=== PATIENT | female | born 2000 | race Caucasian/White ===

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

== ENCOUNTER 2023-07-07 06:10 | Emergency (ER) | payer BC, MEDICAID, SELFPAY ==
[2023-07-07 06:19] VITALS: BP 110/84; PULSE 101; RESP 19; TEMP 36.8; O2SAT 95; BMI 36.3
[2023-07-07] MEDS: METOCLOPRAMIDE HCL 10MG/2ML VIAL 10 MG IVP (06:35)
[2023-07-07] MEDS: LACTATED RINGERS 1000ML 1,000 ML 999 ML IV (06:35)
--- NOTE | 2023-07-07 06:40 | HMH.EDGENADL ---
Discharge Plan Disposition Patient Disposition: Still a Patient Prescriptions Prescriptions: New ondansetron 4 mg tablet,disintegrating 4 mg PO Q6H PRN (Reason: nausea and vomiting) 5 Days Qty: 20 0RF metoclopramide HCl 10 mg tablet 10 mg PO Q6H PRN (Reason: nausea and vomiting) 7 Days Qty: 28 0RF No Action PNV cmb#95-ferrous fumarate-FA [] 28 mg iron- 800 mcg Tablet 1 tab PO DAILY Referrals Follow up/Referrals: Provider,Referral, MD [Primary Care Provider] - See instructions Activity Restrictions/Add. Instructions Additional Instructions/Restrictions: Your symptoms are consistent with a viral gastroenteritis most likely secondary to norovirus given the known exposure. You have been given Reglan and Zofran to be used at home as needed for nausea and vomiting. Please follow-up with your [facility] doctor as previously instructed. You have a living single intrauterine consistent with dates return emerged part with any significant worsening of your symptoms. Clinical Impressions Clinical Impression: Nausea vomiting and diarrhea, First trimester Instructions Patient Instructions: DI for Diarrhea and Traveler's Diarrhea -- Adult, DI for Diarrhea and Traveler's Diarrhea -- Child, DI for Nausea -- Adult, DI for Nausea -- Child Discharge ED Provider: Keith Bryan General Adult HPI <Keith Bryan MD - Last Filed: 07/07/23 06:45> General Chief complaint: Nausea/Vomiting/Diarrhea Stated complaint: vomiting Time Seen by Provider: 07/07/23 06:15 Mode of Arrival: Family Vehicle Source of Information: Patient Limitations: No Limitations Description of Symptoms (Recalled from ER Triage Doc. by RN): 22 yo female presents with cc of acute onset n/v/d since 040. A1. Currently is 11 weeks, [address] Wall in [place]. States her and her both have these symptoms and their daughter recently got over norovirus . Patient is afebrile. States her belly is cramping intermittently. Unable to tolerate any PO. PMH: n/a; PSH: n/a; takes a daily vitamin. History of Present Illness HPI narrative: 22-year-old female, currently 11 weeks , history of miscarriage in February, presents with nausea vomiting diarrhea. Reports that been ongoing since yesterday. She reports she has vomited at least 7 times in the last 24 hours. She reports she is unable to keep anything down including liquids. She reports frequent diarrhea as well. Her daughter recently got over norovirus and patient has presumably picked it up. She denies any significant abdominal pain. She denies fever. Related Data Home Medications Medication Instructions Recorded Confirmed vit no.95-ferrous 1 tab PO DAILY 07/07/23 07/07/23 fumarate 28 mg-folic acid 800 mcg tablet () Previous Rx's Medication Instructions Recorded metoclopramide HCl 10 mg tablet 10 mg PO Q6H PRN nausea and 07/07/23 vomiting 7 days #28 tabs ondansetron 4 mg disintegrating 4 mg PO Q6H PRN nausea and 07/07/23 tablet vomiting 5 days #20 tabs Allergies Allergy/AdvReac Type Severity Reaction Status Date / Time No Known Drug Allergies Allergy Unknown Verified 12/07/21 09:15 [NO KNOWN DRUG ALLERGIES] [facility] <Keith Bryan MD - Last Filed: 07/07/23 06:45> [facility] Disclaimer: The information contained in this section may have been updated after the patient was seen, as this information can be updated by other users. Social History Smoking Status: Unknown if ever smoked second hand exposure: No alcohol intake: never substance use type: denies use current occupational status: employed Travel in the last 8 weeks: None household members: family housing: house caffeine: No <Keith Bryan MD - Last Filed: 07/07/23 06:45> ROS Obtained: Yes All systems reviewed & no additional complaints except as documented Physical Exam <Keith Bryan MD - Last Filed: 07/07/23 06:45> General General appearance: alert and in no apparent distress Head Head exam: atraumatic and normocephalic Eye Eye exam: Present normal appearance, PERRL and EOMI ENT ENT exam: Present normal oropharynx and normal external ear exam Neck Neck exam: Present normal inspection and full ROM Chest Chest inspection: Present normal inspection and symmetric chest wall rise; Absent tenderness Respiratory Respiratory exam: Present normal lung sounds bilaterally; Absent respiratory distress Cardiovascular Cardiovascular exam: Present regular rate and normal rhythm Abdominal Exam Abdominal exam: Present soft; Absent distention, tenderness or guarding Extremities Exam Extremities exam: Present normal inspection; Absent edema or joint swelling Back Exam Back exam: Present normal inspection; Absent tenderness Neurological Exam Neurological exam: Present alert and oriented X3; Absent motor sensory deficit Psychiatric Psychiatric exam: Present normal affect and normal mood Skin Skin exam: Present warm, dry and normal color Lymphatic Lymphatic Findings: no adenopathy Medical Decision Making <Keith Bryan MD - Last Filed: 07/07/23 06:45> Medical Records Medical records reviewed: Yes I reviewed the patient's medical records. Caesar Inquiry Pt receiving controlled substance: No Caesar was queried for this patient: No Vital Signs: 07/07/23 06:19 07/07/23 07:45 Temperature 98.2 F Temperature Source Oral Pulse Rate 80 Pulse Rate [Right Brachial] 101 H Respiratory Rate 19 Blood Pressure 119/69 Blood Pressure [Right Arm] 110/84 Blood Pressure Mean [Right Arm] 92 Blood Pressure Source [Right Arm] Automatic Cuff Blood Pressure Position [Right Arm] Sitting 02 Sat by Pulse Oximetry 95 98 Oxygen Delivery Method Room Air Room Air Lab Data Lab results reviewed: Yes I reviewed the patient's lab results. Lab Results 07/07/23 06:40: WBC 9.1, RBC 4.74, Hgb 13.0, Hct 40.7, MCV 86.0, MCH 27.6, MCHC 32.0, RDW 14.8, Plt Count 238, MPV 8.2, Neut % (Auto) 88.3 H, Lymph % (Auto) 6.4 L, [place] % (Auto) 3.9, Eos % (Auto) 1.1, Baso % (Auto) 0.4, Neut # (Auto) 8.0 H, Lymph # (Auto) 0.6 L, [place] # (Auto) 0.4, Eos # (Auto) 0.1, Baso # (Auto) 0.0, Sodium 136, Potassium 3.9, Chloride 104, Carbon Dioxide 22, Anion Gap 13.9, BUN 9, Creatinine 0.40 L, Estimated Creat Clear 321 H, Estimated GFR 198, Est GFR ( Amer) 239, Glucose 108 H, Calcium 9.1, Total Bilirubin 0.5, AST 31, ALT 30, Alkaline Phosphatase 50, Total Protein 7.2, Albumin 4.1, Globulin 3.1, Albumin/Globulin Ratio 1.3 07/07/23 06:40 07/07/23 06:40 Orders (Tests/Meds): ED MEDICATIONS Discontinued Medications Generic Name Dose Route Start Last Admin Trade Name Michael PRN Reason Stop Dose Admin Lactated Ringer's 1,000 mls @ 999 mls/hr 07/07/23 06:26 07/07/23 06:35 Lactated Ringer's 1000 Ml Bag IV 07/07/23 07:26 999 mls/hr .Q1H1M ONE Administration Lactated Ringer's 1,000 mls @ 999 mls/hr 07/07/23 06:30 Lactated Ringer's 1000 Ml Bag IV 07/07/23 07:30 .Q1H1M NYLA Metoclopramide HCl 10 mg 07/07/23 06:30 07/07/23 06:35 Metoclopramide Hcl 10mg/2ml Vial IVP 07/07/23 06:31 10 mg ONCE ONE Administration ORDERS Category Date Time Status POCUS Point of Care (ER Only) Stat Exams 07/07/23 07:48 Ordered Complete Blood Count Auto Diff Stat Lab 07/07/23 06:40 Results Comprehensive Metabolic Panel Stat Lab 07/07/23 06:40 Results HCG,Quantitative Stat Lab 07/07/23 06:40 Results Magnesium Stat Lab 07/07/23 06:40 Received Medical Decision Narrative: 22-year-old female, 11 weeks , presents with intractable nausea vomiting diarrhea, recent exposure to norovirus.. History was obtained interactive discussion with patient. On arrival, patient is [afebrile, hemodynamically stable, satting appropriately, alert, oriented x4, GCS 15], moving all extremities spontaneously. Full physical exam performed and significant for no abdominal tenderness on exam. Differential includes but is not limited to gastroenteritis, dehydration, hyperemesis, electrolyte derangement. Patient was given 2 L IV fluid bolus, IV Reglan for symptomatic management and correction of underlying abnormalities. Workup initiated including CBC CMP mag beta-hCG. At this time care handed off operating physician. <Jordin Hunt MD - Last Filed: 07/07/23 08:01> Vital Signs: 07/07/23 06:19 07/07/23 07:45 Temperature 98.2 F Temperature Source Oral Pulse Rate 80 Pulse Rate [Right Brachial] 101 H Respiratory Rate 19 Blood Pressure 119/69 Blood Pressure [Right Arm] 110/84 Blood Pressure Mean [Right Arm] 92 Blood Pressure Source [Right Arm] Automatic Cuff Blood Pressure Position [Right Arm] Sitting 02 Sat by Pulse Oximetry 95 98 Oxygen Delivery Method Room Air Room Air Lab Data Lab results reviewed: Yes I reviewed the patient's lab results. Lab Results 07/07/23 06:40: WBC 9.1, RBC 4.74, Hgb 13.0, Hct 40.7, MCV 86.0, MCH 27.6, MCHC 32.0, RDW 14.8, Plt Count 238, MPV 8.2, Neut % (Auto) 88.3 H, Lymph % (Auto) 6.4 L, [place] % (Auto) 3.9, Eos % (Auto) 1.1, Baso % (Auto) 0.4, Neut # (Auto) 8.0 H, Lymph # (Auto) 0.6 L, [place] # (Auto) 0.4, Eos # (Auto) 0.1, Baso # (Auto) 0.0, Sodium 136, Potassium 3.9, Chloride 104, Carbon Dioxide 22, Anion Gap 13.9, BUN 9, Creatinine 0.40 L, Estimated Creat Clear 321 H, Estimated GFR 198, Est GFR ( Amer) 239, Glucose 108 H, Calcium 9.1, Total Bilirubin 0.5, AST 31, ALT 30, Alkaline Phosphatase 50, Total Protein 7.2, Albumin 4.1, Globulin 3.1, Albumin/Globulin Ratio 1.3 Orders (Tests/Meds): ED MEDICATIONS Discontinued Medications Generic Name Dose Route Start Last Admin Trade Name Freq PRN Reason Stop Dose Admin Lactated Ringer's 1,000 mls @ 999 mls/hr 07/07/23 06:26 07/07/23 06:35 Lactated Ringer's 1000 Ml Bag IV 07/07/23 07:26 999 mls/hr .Q1H1M ONE Administration Lactated Ringer's 1,000 mls @ 999 mls/hr 07/07/23 06:30 Lactated Ringer's 1000 Ml Bag IV 07/07/23 07:30 .Q1H1M NYLA Metoclopramide HCl 10 mg 07/07/23 06:30 07/07/23 06:35 Metoclopramide Hcl 10mg/2ml Vial IVP 07/07/23 06:31 10 mg ONCE ONE Administration ORDERS Category Date Time Status POCUS Point of Care (ER Only) Stat Exams 07/07/23 07:48 Ordered Complete Blood Count Auto Diff Stat Lab 07/07/23 06:40 Results Comprehensive Metabolic Panel Stat Lab 07/07/23 06:40 Results HCG,Quantitative Stat Lab 07/07/23 06:40 Results Magnesium Stat Lab 07/07/23 06:40 Received Medical Decision Narrative: 22-year-old female, 11 weeks , presents with intractable nausea vomiting diarrhea, recent exposure to norovirus.. History was obtained interactive discussion with patient. On arrival, patient is [afebrile, hemodynamically stable, satting appropriately, alert, oriented x4, GCS 15], moving all extremities spontaneously. Full physical exam performed and significant for no abdominal tenderness on exam. Differential includes but is not limited to gastroenteritis, dehydration, hyperemesis, electrolyte derangement. Patient was given 2 L IV fluid bolus, IV Reglan for symptomatic management and correction of underlying abnormalities. Workup initiated including CBC CMP mag beta-hCG. At this time care handed off operating physician. Reassessment this is Dr. Hunt at 7:59 AM I took over from Dr. Bryan. Labs unremarkable patient feeling much better serial abdominal exams benign vital signs improved patient able to tolerate p.o. Limited bedside ultrasound was consistent with single living intrauterine consistent with dates. Reglan and Zofran sent to her pharmacy return precautions emphasized patient discharged in improved condition. Procedures <Keith Bryan MD - Last Filed: 07/07/23 06:45> Risk/Benefits of Procedure(s) Were Explained: Yes <Jordin Hunt MD - Last Filed: 07/07/23 08:01> Miscellaneous Procedure Procedure Performed: Limited OB ultrasound Indication: Abdominal pain nausea vomiting Identified structures: [-Uterus -Left adnexa -Right adnexa -Pouch of Vivek] Findings: Uterus: Definitive IUP FHR: 165 Right adnexa: No free fluid Left adnexa: No free fluid Cul de sac: Fluid absent Impression: Single living IUP consistent with dates Images were saved to permanent archive The study was technically adequate CPT Transabdominal: 48811-22 This study was performed by me, and I personally interpreted all images/videos. Based on my clinical judgement, these images were adequate and did not necessitate further imaging. Critical Care <Keith Bryan MD - Last Filed: 07/07/23 06:45> Critical Care Time Critical Care Time: No
[2023-07-07 07:27] LABS: Basophils % 0.4 % (0.1-2.0); Eosinophils # 0.1 K/mm3 (0.0-0.4); Eosinophils % 1.1 % (0.1-12.0); Hematocrit 40.7 % (37.0-47.0); Lymphocytes # 0.6 K/mm3 (0.7-4.5); Lymphocytes % 6.4 % (10-50); Mean Corpuscular Hemoglobin 27.6 pg (27.0-31.2); Mean Platelet Volume 8.2 fl (7.4-10.4); Monocytes # 0.4 K/mm3 (0.1-1.0); Monocytes % 3.9 % (1.7-9.3); Neutrophils % 88.3 % (37.0-80.0); Platelet Count 238 K/mm3 (142-424); Red Blood Count 4.74 M/mm3 (4.20-5.40); Red Cell Distribution Width 14.8 % (11.5-17.5); White Blood Count 9.1 K/mm3 (4.8-10.8)
[2023-07-07 07:34] LABS: MANUAL DIFFERENTIAL MANUAL DIFFERENTIAL (MANUAL DIFF)
--- NOTE | 2023-07-07 07:34 | PC.NURSE ---
rounded on pt at this time, provided pillow, placed bp cuff and O2 sensor back on pt.
[2023-07-07 07:35] LABS: Alanine Aminotransferase 30 U/L (12-78); Albumin Level 4.1 g/dl (3.5-5.0); Albumin/Globulin Ratio 1.3 (1.1-1.8); Alkaline Phosphatase 50 U/L (38-126); Anion Gap 13.9 mEq/L (5-15); Aspartate Amino Transferase 31 U/L (14-36); Bilirubin,Total 0.5 mg/dl (0.2-1.3); Blood Urea Nitrogen 9 mg/dl (7-17); Calcium 9.1 mg/dl (8.4-10.2); Carbon Dioxide 22 mmol/L (22.0-30.0); Chloride 104 mmol/L (98-107); Creatinine Clearance Estimated 321 mL/min (50-200); Estimated Glomerular Filt Rate 198 ml/min (>60); GFR (African American) 239 ML/MIN (>60); Globulin 3.1 g/dL (1.3-3.2); Glucose 108 mg/dl (74-100); Potassium 3.9 mmoL/L (3.5-5.1); Sodium 136 mmol/L (136-145); Total Protein,Serum 7.2 g/dl (6.3-8.2)
[2023-07-07 07:45] VITALS: BP 119/69; PULSE 80; O2SAT 98
[2023-07-07 08:17] LABS: HCG,Quantitative 39609 mIU/ml (0-5.42)
[2023-07-07 08:19] VITALS: BP 117/72; PULSE 92; RESP 13; TEMP 36.6
[2023-07-07 08:25] LABS: Magnesium 1.6 mg/dl (1.6-2.3)
[2023-07-07 08:52] LABS: Eosinophils % 1 % (0-3); Lymphocytes % 8 % (10-50); Monocytes % 3 % (2-9); Neutrophils % 88 % (42-76); Platelet Estimate Normal; RBC Morphology Normal; Total Cells Counted 100
== END 2023-07-07 08:20 | disposition home or self-care (01) ==
PROVIDERS: Emergency Provider Emergency Medicine
DX: O26.891 Other specified pregnancy related conditions, first trimester (principal); R19.7 Diarrhea, unspecified; R11.2 Nausea with vomiting, unspecified; Z3A.11 11 weeks gestation of pregnancy
CPT/HCPCS: 80053; 83735; 84702; 85007; 85025; 96361; 96374; 99284

== ENCOUNTER 2024-02-25 14:31 | Outpatient (CLI) | payer BC, MEDICAID, SELFPAY ==
[2024-02-25 18:15] LABS: Basophils % 0.5 % (0.1-2.0); Eosinophils # 0.2 K/mm3 (0.0-0.4); Eosinophils % 2.6 % (0.1-12.0); Hematocrit 37.6 % (37.0-47.0); Hemoglobin 11.6 g/dL (12.2-16.2); Lymphocytes # 2.5 K/mm3 (0.7-4.5); Lymphocytes % 30.2 % (10-50); Mean Corpuscular HGB Conc 30.9 g/dL (31.8-35.4); Mean Corpuscular Hemoglobin 24.3 pg (27.0-31.2); Mean Corpuscular Volume 78.8 fl (81-99); Mean Platelet Volume 10.3 fl (7.4-10.4); Monocytes # 0.6 K/mm3 (0.1-1.0); Monocytes % 7.1 % (1.7-9.3); Neutrophils # 4.9 K/mm3 (1.8-7.8); Neutrophils % 59.2 % (37.0-80.0); Platelet Count 334 K/mm3 (142-424); Red Blood Count 4.77 M/mm3 (4.20-5.40); Red Cell Distribution Width 20.1 % (11.5-17.5); White Blood Count 8.3 K/mm3 (4.8-10.8)
[2024-02-25 18:51] LABS: Alanine Aminotransferase 104 U/L (12-78); Albumin Level 4.4 g/dl (3.5-5.0); Albumin/Globulin Ratio 1.7 (1.1-1.8); Alkaline Phosphatase 87 U/L (38-126); Anion Gap 12.3 mEq/L (5-15); Aspartate Amino Transferase 69 U/L (14-36); Bilirubin,Total 0.4 mg/dl (0.2-1.3); Blood Urea Nitrogen 14 mg/dl (7-17); Calcium 9.6 mg/dl (8.4-10.2); Carbon Dioxide 22 mmol/L (22.0-30.0); Chloride 107 mmol/L (98-107); Chol/HDL Ratio 2.3 (1-3.5); Cholesterol 218 mg/dl (140-200); Estimated Glomerular Filt Rate 123 ml/min (>60); GFR (African American) 149 ML/MIN (>60); Globulin 2.6 g/dL (1.3-3.2); Glucose 86 mg/dl (74-100); HDL Cholesterol 94 mg/dl (40-60); Potassium 4.3 mmoL/L (3.5-5.1); Sodium 137 mmol/L (136-145); Triglycerides 100 mg/dl (30-150); VLDL Cholesterol 20 mg/dL (0-40)
[2024-02-25 19:01] LABS: 25-OH Vitamin D, Total 22.8 ng/mL (30-100)
[2024-02-25 19:07] LABS: Direct LDL Cholesterol 114.96 mg/dL (100-129)
[2024-02-25 19:18] LABS: Thyroid Stimulating Hormone 2.84 uIU/mL (0.465-4.68)
[2024-02-27 05:42] LABS: HBsAg Screen Negative (Negative); HCV Ab Non Reactive (Non Reactive); Hep A Ab, IGM Negative (Negative); Hep B Core Ab, IgM Negative (Negative)
== END 2024-02-25 23:59 | disposition home or self-care (01) ==
LOC: LAB.DROPOF 02-26 12:49
PROVIDERS: PCP Family Medicine; Visit Provider Family Medicine
DX: E66.9 Obesity, unspecified (principal); Z68.37 Body mass index [BMI] 37.0-37.9, adult; R74.8 Abnormal levels of other serum enzymes
CPT/HCPCS: 80053; 80061; 80074; 82306; 84443; 85025